=== PATIENT | male | born 1965 | race Caucasian/White ===

== ENCOUNTER 2021-01-25 10:12 | Emergency (ER) | payer OTHER ==
[~2021-01-25] VITALS: Ht 170.2 cm; Wt 75.3 kg
== END 2021-01-25 13:14 | disposition home or self-care (01) ==
LOC: ER 10:12
DX: S00.83XA Contusion of other part of head, initial encounter (principal); S40.011A Contusion of right shoulder, initial encounter; S30.0XXA Contusion of lower back and pelvis, initial encounter; W18.39XA Other fall on same level, initial encounter; Y93.89 Activity, other specified; Y92.89 Other specified places as the place of occurrence of the external cause; Y99.8 Other external cause status

== ENCOUNTER 2024-08-28 09:53 | Emergency (ER) | payer OTHER ==
[~2024-08-28] VITALS: Ht 167.6 cm; Wt 63.5 kg
[2024-08-28] MEDS ORDERED: GLUMETZA500 MG PO (10:38)
[2024-08-28] MEDS ORDERED: POVIDONE-IODINE 118 ML BOTT TOP ONE (11:03)
[2024-08-28] MEDS ORDERED: AMOX-CLAV 875-1 EACH PO (12:06)
[2024-08-28] MEDS ORDERED: CEFTRIAXONE SODIUM 1,000 MG VIAL ONE (12:13)
[2024-08-28] MEDS ORDERED: LIDOCAINE HCL 1% 10ML VIAL ONE (12:14)
[2024-08-28] MEDS ORDERED: CEFTRIAXONE SODIUM 1,000 MG VIAL IM ONE (12:15)
== END 2024-08-28 12:34 | disposition home or self-care (01) ==
LOC: ER 09:56
DX: S91.052A Open bite, left ankle, initial encounter (principal); W54.0XXA Bitten by dog, initial encounter; Y93.89 Activity, other specified; Y92.89 Other specified places as the place of occurrence of the external cause; Y99.8 Other external cause status; E11.9 Type 2 diabetes mellitus without complications; Z79.84 Long term (current) use of oral hypoglycemic drugs